=== PATIENT | female | born 1960 | race African-American/Black ===

== ENCOUNTER 2016-02-27 11:46 | Emergency (ER) | payer BC, OTHER ==
[~2016-02-27] VITALS: Ht 157.5 cm; Wt 74.8 kg
--- NOTE | ~2016-02-27 | EKG ---
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
[~2016-02-27 11:46] MED LIST: AMBIEN CR 6.26.25 MG PO; CITRATE OF MAG296 ML PO; CLARINEX5 MG PO; COLACE 100 MG100 MG PO; DESYREL; DILAUDID 2 MG TA2 MG PO; DILAUDID2 M1 PO; FLEXERIL PO; GLUCOPHAGE; HYDROCHLOROTH12.5 MG PO; HYDROCODONE-AP1 EAC6 PO; MIRALAX255 GM PO; NORCO 5-325 TA1 EACH PO; OXYCODONE HCL15 MG PO; PAROXETINE HCL30 MG PO; PEPCID40 MG PO; PERCOCET 5-3251 EACH PO; PERCODAN TABLE1 EACH PO; POTASSIUM; PREDNISONE 20 M20 MG PO; PRISTIQ100 MG PO; SYNTHROID; VALIUM2 MG PO; WELLBUTRIN SR150 MG PO
[2016-02-27 12:42] LABS: ABSOLUTE NEUTROPHILS 3.8 thou/uL (1.4-8.2); BASOPHILS 0.5 % (0.0-2.0); EOSINOPHILS 1.9 % (0.0-3.0); HEMATOCRIT 35.4 % (37.0-47.0); LYMPHOCYTES 26.8 % (24.0-44.0); MCH 30.4 pg (26.0-34.0); MCV 89.6 fL (80.0-100.0); PLATELET COUNT 307 thou/uL (150-400); POLYS 63.8 % (36.0-66.0); RBC 3.94 mil/uL (4.20-5.00); RDW 12.4 % (10.5-14.5); WBC 5.9 thou/uL (4.0-11.0)
[2016-02-27 12:45] LABS: ANION GAP 10 mmol/L (7-16); BUN 9 mg/dL (7-18); CALCIUM 8.7 mg/dL (8.5-10.1); CHLORIDE 103 mmol/L (98-107); CO2 28 mmol/L (21-32); CREATININE 0.9 mg/dL (0.6-1.3); GLUCOSE 100 mg/dL (70-99); POTASSIUM 4.2 mmol/L (3.5-5.1); SODIUM 141 mmol/L (136-145)
[2016-02-27 12:50] LABS: MANUAL DIFF NO
[2016-02-27 13:09] LABS: TROPONIN-I < 0.04 ng/mL (<0.04-0.07)
[2016-02-27 13:21] VITALS: BP 133/66
[2016-02-27] MEDS ORDERED: AUGMENTIN 875-1 EACH PO (13:25)
[2016-03-12] MEDS ORDERED: ROBAXIN 750 MG750 M1 PO (11:35)
[2016-03-12] MEDS ORDERED: NORCO 5-325 TA1 EACH PO (13:07)
[2016-03-12] MEDS ORDERED: LIORESAL 10 MG10 MG PO (13:07)
[2016-03-12] MEDS ORDERED: NAPROSYN500 M1 PO (13:07)
== END 2016-02-27 14:17 ==
LOC: ER 11:46
PROVIDERS: Emergency Medicine
DX: J20.9 Acute bronchitis, unspecified (principal); G43.909 Migraine, unspecified, not intractable, without status migrainosus; I10 Essential (primary) hypertension; E11.9 Type 2 diabetes mellitus without complications; Z90.89 Acquired absence of other organs; Z88.8 Allergy status to other drugs, medicaments and biological substances

== ENCOUNTER 2016-05-28 16:11 | Emergency (ER) | payer BC, OTHER ==
[~2016-05-28] VITALS: Ht 157.5 cm; Wt 83.9 kg
[~2016-05-28 16:11] MED LIST changes: +AUGMENTIN 875-1 EACH PO; +LIORESAL 10 MG10 MG PO; +NAPROSYN500 M1 PO; +ROBAXIN 750 MG750 M1 PO
[2016-05-28] MEDS ORDERED: TRAZODONE HCL100 MG PO (16:34)
[2016-05-28] MEDS ORDERED: PROPRANOLOL 1010 MG PO (16:35)
[2016-05-28] MEDS ORDERED: LEVOTHYROXINE0.05 MG PO (16:36)
[2016-05-28] MEDS ORDERED: LINZESS290 MCG PO (16:36)
[2016-05-28] MEDS ORDERED: ESTRACE2 M3 PO (16:37)
[2016-05-28] MEDS ORDERED: DOXEPIN 75 MG C75 M1 PO (16:37)
[2016-05-28] MEDS ORDERED: BUTALB-APAP-CA1 EACH PO (18:30)
[2016-05-28 18:47] VITALS: BP 118/63
== END 2016-05-28 18:30 | disposition home or self-care (01) ==
LOC: ER 16:11
DX: G43.909 Migraine, unspecified, not intractable, without status migrainosus (principal); Z90.89 Acquired absence of other organs; Z98.84 Bariatric surgery status; I10 Essential (primary) hypertension; E11.9 Type 2 diabetes mellitus without complications; Z88.8 Allergy status to other drugs, medicaments and biological substances

== ENCOUNTER 2016-06-27 08:06 | Emergency (ER) | payer BC, OTHER ==
[~2016-06-27] VITALS: Ht 157.5 cm; Wt 81.7 kg
--- NOTE | ~2016-06-27 | EKG ---
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
[~2016-06-27 08:06] MED LIST changes: +BUTALB-APAP-CA1 EACH PO; +DOXEPIN 75 MG C75 M1 PO; +ESTRACE2 M3 PO; +LEVOTHYROXINE0.05 MG PO; +LINZESS290 MCG PO; +PROPRANOLOL 1010 MG PO; +TRAZODONE HCL100 MG PO
[2016-06-27 08:27] LABS: ABSOLUTE NEUTROPHILS 5.7 thou/uL (1.4-8.2); BASOPHILS 0.8 % (0.0-2.0); EOSINOPHILS 1.4 % (0.0-3.0); HEMATOCRIT 39.1 % (37.0-47.0); HEMOGLOBIN 13.5 gm/dL (12.0-15.0); LYMPHOCYTES 22.9 % (24.0-44.0); MCHC 34.6 g/dL (28.0-37.0); MCV 92.5 fL (80.0-100.0); MONOCYTES 8.2 % (1.0-8.0); PLATELET COUNT 278 thou/uL (150-400); POLYS 66.7 % (36.0-66.0); RBC 4.22 mil/uL (4.20-5.00); RDW 12.3 % (10.5-14.5); WBC 8.6 thou/uL (4.0-11.0)
[2016-06-27 08:29] LABS: MANUAL DIFF NO
[2016-06-27 08:35] LABS: CALCIUM 9.7 mg/dL (8.5-10.1); POTASSIUM 3.7 mmol/L (3.5-5.1)
[2016-06-27] MEDS ORDERED: PROVENTIL HFA6.7 G1 INH (09:55)
[2016-06-27 10:17] VITALS: BP 95/56
== END 2016-06-27 10:17 | disposition home or self-care (01) ==
LOC: ER 08:06
PROVIDERS: Emergency Medicine
DX: J06.9 Acute upper respiratory infection, unspecified (principal); M79.1 Myalgia; G43.909 Migraine, unspecified, not intractable, without status migrainosus; I10 Essential (primary) hypertension; E11.9 Type 2 diabetes mellitus without complications; Z90.89 Acquired absence of other organs; Z98.84 Bariatric surgery status; Z88.8 Allergy status to other drugs, medicaments and biological substances

== ENCOUNTER 2016-07-29 10:11 | Emergency (ER) | payer BC, OTHER ==
[~2016-07-29] VITALS: Ht 157.5 cm; Wt 81.7 kg
[~2016-07-29 10:11] MED LIST changes: +PROVENTIL HFA6.7 G1 INH
[2016-07-29] MEDS ORDERED: MOBIC15 MG PO (11:09)
[2016-07-29] MEDS ORDERED: NORCO 5-325 TA1 EACH PO (11:15)
[2016-07-29 11:22] VITALS: BP 131/74
== END 2016-07-29 11:24 | disposition home or self-care (01) ==
LOC: ER 10:11
DX: M25.552 Pain in left hip (principal); I10 Essential (primary) hypertension; E11.9 Type 2 diabetes mellitus without complications; Z96.653 Presence of artificial knee joint, bilateral; Z96.642 Presence of left artificial hip joint; Z90.49 Acquired absence of other specified parts of digestive tract; Z98.84 Bariatric surgery status; Z88.8 Allergy status to other drugs, medicaments and biological substances; M79.89 Other specified soft tissue disorders

== ENCOUNTER 2016-08-17 18:31 | Emergency (ER) | payer BC, OTHER ==
[~2016-08-17] VITALS: Ht 157.5 cm; Wt 81.7 kg
[~2016-08-17 18:31] MED LIST changes: +MOBIC15 MG PO
[2016-08-17] MEDS ORDERED: FENTANYL 1100 MCG/HR TRANSDERM (22:26)
[2016-08-17] MEDS ORDERED: PREDNISONE50 MG PO (22:26)
[2016-08-17 22:43] VITALS: BP 135/68
== END 2016-08-17 22:43 | disposition home or self-care (01) ==
LOC: ER 18:31
DX: S76.012A Strain of muscle, fascia and tendon of left hip, initial encounter (principal); I10 Essential (primary) hypertension; E11.9 Type 2 diabetes mellitus without complications; G43.909 Migraine, unspecified, not intractable, without status migrainosus; Z98.890 Other specified postprocedural states; Z90.49 Acquired absence of other specified parts of digestive tract; Z96.653 Presence of artificial knee joint, bilateral; Z88.1 Allergy status to other antibiotic agents; W18.39XA Other fall on same level, initial encounter; Y93.89 Activity, other specified; Y92.89 Other specified places as the place of occurrence of the external cause; Y99.8 Other external cause status

== ENCOUNTER 2016-10-09 12:09 | Emergency (ER) | payer BC, OTHER ==
[~2016-10-09] VITALS: Ht 157.5 cm; Wt 81.7 kg
[~2016-10-09 12:09] MED LIST changes: +FENTANYL 1100 MCG/HR TRANSDERM; +PREDNISONE50 MG PO
[2016-10-09] MEDS ORDERED: HYDROCODONE-AP1 EAC6 PO (14:35)
[2016-10-09] MEDS ORDERED: SENOKOT-S1 TA1 PO (14:44)
[2016-10-09 15:14] VITALS: BP 145/87
== END 2016-10-09 15:14 | disposition home or self-care (01) ==
LOC: ER 12:09
DX: G89.29 Other chronic pain (principal); M54.5 Low back pain; I10 Essential (primary) hypertension; E11.9 Type 2 diabetes mellitus without complications; G43.909 Migraine, unspecified, not intractable, without status migrainosus; Z98.890 Other specified postprocedural states; Z96.642 Presence of left artificial hip joint; Z88.1 Allergy status to other antibiotic agents

== ENCOUNTER 2016-11-24 18:07 | Emergency (ER) | payer BC, OTHER ==
[~2016-11-24] VITALS: Ht 157.5 cm; Wt 83.9 kg
[~2016-11-24 18:07] MED LIST changes: +SENOKOT-S1 TA1 PO
[2016-11-24] MEDS ORDERED: REGLAN 10 MG TA10 MG PO (23:07)
[2016-11-24 23:30] VITALS: BP 109/64
== END 2016-11-24 23:32 | disposition home or self-care (01) ==
LOC: ER 18:07
DX: G43.009 Migraine without aura, not intractable, without status migrainosus (principal); I10 Essential (primary) hypertension; E11.9 Type 2 diabetes mellitus without complications; Z96.653 Presence of artificial knee joint, bilateral; Z88.1 Allergy status to other antibiotic agents

== ENCOUNTER 2017-08-29 09:56 | Emergency (ER) | payer BC, OTHER ==
[~2017-08-29] VITALS: Ht 157.5 cm; Wt 81.7 kg
--- NOTE | ~2017-08-29 | EKG ---
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 : 1960 Requested By: Lacey Jin Order Number: [id number] MD: Jean Sandoval Measurements Intervals [place] Rate: 63 P: 40 MO: 142 QRS: 19 QRSD: 91 T: 24 QT: 388 QTc: 398 Interpretive Statements Sinus rhythm Normal tracing Compared to ECG 01/01/2017 20:00:32 T-wave abnormality no longer present Electronically Signed On 08-30-2017 7:45:26 CDT by Jean Sandoval [email or web address] <ELECTRONICALLY SIGNED> By: Jean Sandoval MD, [facility] 08/30/17 0745 1007 [facility] Jean Sandoval MD, FACC /EPI
[~2017-08-29 09:56] MED LIST changes: +REGLAN 10 MG TA10 MG PO
[2017-08-29 10:35] LABS: ABSOLUTE NEUTROPHILS 3.2 thou/uL (1.4-8.2); BASOPHILS 0.6 % (0.0-2.0); EOSINOPHILS 1.6 % (0.0-3.0); HEMOGLOBIN 13.5 gm/dL (12.0-15.0); LYMPHOCYTES 27.6 % (24.0-44.0); MCH 32.2 pg (26.0-34.0); MCHC 34.6 g/dL (28.0-37.0); MONOCYTES 7.9 % (1.0-8.0); PLATELET COUNT 286 thou/uL (150-400); POLYS 62.3 % (36.0-66.0); RBC 4.19 mil/uL (4.20-5.00); RDW 12.1 % (10.5-14.5); WBC 5.2 thou/uL (4.0-11.0)
[2017-08-29 10:41] LABS: ANION GAP 6 mmol/L (7-16); BUN 11 mg/dL (7-18); CALCIUM 8.5 mg/dL (8.5-10.1); CHLORIDE 106 mmol/L (98-107); CO2 27 mmol/L (21-32); GLUCOSE 104 mg/dL (74-106); POTASSIUM 4.3 mmol/L (3.5-5.1); SODIUM 139 mmol/L (136-145)
[2017-08-29 10:50] LABS: TROPONIN-I <0.06 ng/mL (<0.06)
[2017-08-29] MEDS ORDERED: MOBIC15 MG PO (11:20)
[2017-08-29 11:39] VITALS: BP 129/75
== END 2017-08-29 11:41 | disposition home or self-care (01) ==
LOC: ER 09:56
PROVIDERS: Physician Assistant
DX: R07.89 Other chest pain (principal); R06.02 Shortness of breath; R11.0 Nausea; G43.909 Migraine, unspecified, not intractable, without status migrainosus; I10 Essential (primary) hypertension; E11.9 Type 2 diabetes mellitus without complications; Z90.49 Acquired absence of other specified parts of digestive tract; Z98.84 Bariatric surgery status; Z96.642 Presence of left artificial hip joint; Z88.8 Allergy status to other drugs, medicaments and biological substances

== ENCOUNTER 2017-11-04 16:18 | Emergency (ER) | payer BC, OTHER ==
[~2017-11-04] VITALS: Ht 157.5 cm; Wt 81.7 kg
[2017-11-04 16:26] VITALS: BP 148/88
[2017-11-04] MEDS ORDERED: HYDROCODONE-AP1 EAC6 PO (17:29)
== END 2017-11-04 18:01 | disposition home or self-care (01) ==
LOC: ER 16:18
DX: S92.524A Nondisplaced fracture of middle phalanx of right lesser toe(s), initial encounter for closed fracture (principal); G43.909 Migraine, unspecified, not intractable, without status migrainosus; I10 Essential (primary) hypertension; E11.9 Type 2 diabetes mellitus without complications; Z96.653 Presence of artificial knee joint, bilateral; Z96.642 Presence of left artificial hip joint; Z90.49 Acquired absence of other specified parts of digestive tract; Z88.8 Allergy status to other drugs, medicaments and biological substances; W22.8XXA Striking against or struck by other objects, initial encounter; Y92.89 Other specified places as the place of occurrence of the external cause; Y93.89 Activity, other specified; Y99.8 Other external cause status

== ENCOUNTER 2018-01-07 16:26 | Emergency (ER) | payer BC, OTHER ==
[~2018-01-07] VITALS: Ht 165.1 cm; Wt 90.7 kg
[2018-01-07 16:27] VITALS: BP 144/74
[2018-01-07] MEDS ORDERED: PERCOCET 7.5-31 EACH PO (18:12)
== END 2018-01-07 18:39 | disposition home or self-care (01) ==
LOC: ER 16:26
DX: S93.491A Sprain of other ligament of right ankle, initial encounter (principal); S83.8X1A Sprain of other specified parts of right knee, initial encounter; S33.5XXA Sprain of ligaments of lumbar spine, initial encounter; Z88.8 Allergy status to other drugs, medicaments and biological substances; G43.909 Migraine, unspecified, not intractable, without status migrainosus; I10 Essential (primary) hypertension; E11.9 Type 2 diabetes mellitus without complications; Z96.653 Presence of artificial knee joint, bilateral; Z96.642 Presence of left artificial hip joint; Z90.49 Acquired absence of other specified parts of digestive tract; W18.39XA Other fall on same level, initial encounter; Y92.89 Other specified places as the place of occurrence of the external cause; Y93.89 Activity, other specified; Y99.8 Other external cause status

== ENCOUNTER 2018-04-04 13:49 | Emergency (ER) | payer BC, OTHER ==
[~2018-04-04] VITALS: Ht 157.5 cm; Wt 81.7 kg
[~2018-04-04 13:49] MED LIST changes: +PERCOCET 7.5-31 EACH PO
[2018-04-04 14:40] LABS: ABSOLUTE NEUTROPHILS 1.9 thou/uL (1.4-8.2); BASOPHILS 0.9 % (0.0-2.0); EOSINOPHILS 0.9 % (0.0-3.0); HEMATOCRIT 37.7 % (37.0-47.0); HEMOGLOBIN 13.3 gm/dL (12.0-15.0); LYMPHOCYTES 44.9 % (24.0-44.0); MCH 32.4 pg (26.0-34.0); MCHC 35.4 g/dL (28.0-37.0); MCV 91.5 fL (80.0-100.0); MONOCYTES 8.2 % (1.0-8.0); PLATELET COUNT 292 thou/uL (150-400); POLYS 45.1 % (36.0-66.0); RBC 4.12 mil/uL (4.20-5.00); RDW 11.6 % (10.5-14.5); WBC 4.3 thou/uL (4.0-11.0)
[2018-04-04 14:49] LABS: CALCIUM 9.7 mg/dL (8.5-10.1); CREATININE 0.9 mg/dL (0.6-1.0)
[2018-04-04 14:55] LABS: ALBUMIN 3.8 g/dL (3.4-5.0); TOTAL BILIRUBIN 0.5 mg/dL (<0.1-1.0); TOTAL PROTEIN 7.6 g/dL (6.4-8.2)
[2018-04-04] MEDS ORDERED: TESSALON PERLE100 MG PO (15:28)
[2018-04-04] MEDS ORDERED: PREDNISONE 20 M20 MG PO (15:53)
[2018-04-04 16:22] VITALS: BP 114/76
== END 2018-04-04 16:25 | disposition home or self-care (01) ==
LOC: ER 13:49
PROVIDERS: Nurse Practitioner
DX: J06.9 Acute upper respiratory infection, unspecified (principal); G43.909 Migraine, unspecified, not intractable, without status migrainosus; I10 Essential (primary) hypertension; E11.9 Type 2 diabetes mellitus without complications; Z96.653 Presence of artificial knee joint, bilateral; Z96.642 Presence of left artificial hip joint; Z90.49 Acquired absence of other specified parts of digestive tract; Z98.84 Bariatric surgery status; Z88.8 Allergy status to other drugs, medicaments and biological substances; R42 Dizziness and giddiness

== ENCOUNTER 2018-07-19 12:01 | Emergency (ER) | payer BC, OTHER ==
[~2018-07-19] VITALS: Ht 157.5 cm; Wt 86.2 kg
[~2018-07-19 12:01] MED LIST changes: +TESSALON PERLE100 MG PO
[2018-07-19 12:33] LABS: URINE BILIRUBIN NEGATIVE (Negative); URINE BLOOD NEGATIVE (Negative); URINE CLARITY CLEAR; URINE COLOR YELLOW; URINE GLUCOSE-RANDOM* NEGATIVE (Negative); URINE KETONES NEGATIVE (Negative); URINE LEUKOCYTES-REFLEX NEGATIVE (Negative); URINE NITRITE-REFLEX NEGATIVE (Negative); URINE PROTEIN (DIPSTICK) TRACE (Negative)
[2018-07-19] MEDS ORDERED: MOBIC7.5 MG PO (15:31)
[2018-07-19] MEDS ORDERED: LIDOCAINE1 EACH TOP (15:31)
[2018-07-19] MEDS ORDERED: NORCO 5-325 TA1 EAC1 PO (15:31)
[2018-07-19 15:40] VITALS: BP 138/69
== END 2018-07-19 15:40 | disposition home or self-care (01) ==
LOC: ER 12:01
PROVIDERS: Physician Assistant
DX: M54.5 Low back pain (principal); R19.7 Diarrhea, unspecified; G43.909 Migraine, unspecified, not intractable, without status migrainosus; I10 Essential (primary) hypertension; E11.9 Type 2 diabetes mellitus without complications; Z96.653 Presence of artificial knee joint, bilateral; Z96.642 Presence of left artificial hip joint; Z88.8 Allergy status to other drugs, medicaments and biological substances; Z79.899 Other long term (current) drug therapy

== ENCOUNTER 2018-08-26 12:35 | Emergency (ER) | payer BC, OTHER ==
[~2018-08-26] VITALS: Ht 157.5 cm; Wt 86.2 kg
[~2018-08-26 12:35] MED LIST changes: +LIDOCAINE1 EACH TOP; +MOBIC7.5 MG PO; +NORCO 5-325 TA1 EAC1 PO
[2018-08-26] MEDS ORDERED: MAGIC MOUTHWASH SW&SWALLOW (13:42)
[2018-08-26 14:02] VITALS: BP 102/70
== END 2018-08-26 14:46 | disposition home or self-care (01) ==
LOC: ER 12:35
DX: K12.1 Other forms of stomatitis (principal); G43.909 Migraine, unspecified, not intractable, without status migrainosus; I10 Essential (primary) hypertension; E11.9 Type 2 diabetes mellitus without complications; Z96.653 Presence of artificial knee joint, bilateral; Z96.642 Presence of left artificial hip joint; Z90.49 Acquired absence of other specified parts of digestive tract; Z98.84 Bariatric surgery status; Z88.8 Allergy status to other drugs, medicaments and biological substances

== ENCOUNTER 2018-08-27 09:49 | Emergency (ER) | payer BC, OTHER ==
[~2018-08-27] VITALS: Ht 157.5 cm; Wt 81.7 kg
[~2018-08-27 09:49] MED LIST changes: +MAGIC MOUTHWASH SW&SWALLOW
[2018-08-27 11:37] VITALS: BP 109/75
--- NOTE | 2018-08-28 18:19 | EKG ---
[address] [address] [address] [facility] [place] [address] ELECTROCARDIOGRAM REPORT Name: ROSARIO PHAN Room #: DEP [facility]#: [id number] ������������������ Admission: 08/27/18 ������������������ Attend Phys: Discharge: 08/27/18 ������������������ Date of : 60 Report #: [id number] ����������������������������������������������������������������� [id number] THIS REPORT FOR: //name// [facility] ED Test Date: 2018-08-27 Test Time: 09:54:31 Pat Name: ROSARIO PHAN Department: Room: Gender: F Monogram [employer] Letter Paster: [facility] : 1960 Requested By: Ema Beaver Order Number: [id number] MD: Jean Sandoval Measurements Intervals [place] Rate: 96 P: 26 [place]: 134 QRS: -3 QRSD: 85 T: 17 QT: 329 QTc: 416 Interpretive Statements Sinus rhythm Abnormal R-wave progression, early transition Borderline T wave abnormalities Compared to ECG 08/29/2017 10:07:34 Nonspecific change in the T wave abnormality Electronically Signed On 08-28-2018 18:18:54 CDT by Jean Sandoval [email or web address] ��������������������������������������������� <ELECTRONICALLY SIGNED> ���������������������������������������� By: Jean Sandoval MD, [facility] ��������������������������������������������� 08/28/18 1818 0954 Jean Sandoval MD, [facility] /EPI
== END 2018-08-27 11:39 | disposition home or self-care (01) ==
LOC: ER 09:49
DX: M94.0 Chondrocostal junction syndrome [Tietze] (principal); K12.1 Other forms of stomatitis; G43.909 Migraine, unspecified, not intractable, without status migrainosus; I10 Essential (primary) hypertension; E11.9 Type 2 diabetes mellitus without complications; Z96.653 Presence of artificial knee joint, bilateral; Z88.8 Allergy status to other drugs, medicaments and biological substances; Z90.49 Acquired absence of other specified parts of digestive tract; Z96.642 Presence of left artificial hip joint

== ENCOUNTER 2018-12-01 16:30 | Emergency (ER) | payer BC, OTHER ==
[~2018-12-01] VITALS: Ht 157.5 cm; Wt 81.7 kg
[2018-12-01] MEDS ORDERED: CYCLOBENZAPRINE5 MG PO (17:28)
[2018-12-01] MEDS ORDERED: NORCO 7.5-3251 EACH PO (17:28)
[2018-12-01] MEDS ORDERED: MEDROLDOSEPACK PO (17:28)
[2018-12-01 18:34] VITALS: BP 148/84
== END 2018-12-01 18:48 | disposition home or self-care (01) ==
LOC: ER 16:30
DX: G89.29 Other chronic pain (principal); M54.5 Low back pain; I10 Essential (primary) hypertension; E11.9 Type 2 diabetes mellitus without complications; G43.909 Migraine, unspecified, not intractable, without status migrainosus; Z98.84 Bariatric surgery status; Z96.653 Presence of artificial knee joint, bilateral; Z96.642 Presence of left artificial hip joint; Z98.890 Other specified postprocedural states; Z88.1 Allergy status to other antibiotic agents

== ENCOUNTER 2018-12-04 13:33 | Emergency (ER) | payer BC, OTHER ==
[~2018-12-04] VITALS: Ht 157.5 cm; Wt 81.7 kg
[~2018-12-04 13:33] MED LIST changes: +CYCLOBENZAPRINE5 MG PO; +MEDROLDOSEPACK PO; +NORCO 7.5-3251 EACH PO
[2018-12-04] MEDS ORDERED: IBUPROFEN 800800 M1 PO (15:58)
[2018-12-04] MEDS ORDERED: NORFLEX100 MG PO (15:58)
[2018-12-04 16:15] VITALS: BP 129/82
== END 2018-12-04 16:15 | disposition home or self-care (01) ==
LOC: ER 13:33
DX: S16.1XXA Strain of muscle, fascia and tendon at neck level, initial encounter (principal); S39.012A Strain of muscle, fascia and tendon of lower back, initial encounter; S76.012A Strain of muscle, fascia and tendon of left hip, initial encounter; G43.909 Migraine, unspecified, not intractable, without status migrainosus; I10 Essential (primary) hypertension; E11.9 Type 2 diabetes mellitus without complications; Z98.84 Bariatric surgery status; Z90.49 Acquired absence of other specified parts of digestive tract; Z96.653 Presence of artificial knee joint, bilateral; Z96.642 Presence of left artificial hip joint; Z88.8 Allergy status to other drugs, medicaments and biological substances; V89.2XXA Person injured in unspecified motor-vehicle accident, traffic, initial encounter; Y92.89 Other specified places as the place of occurrence of the external cause; Y93.89 Activity, other specified; Y99.8 Other external cause status

== ENCOUNTER 2019-11-18 09:43 | Emergency (ER) | payer BC, OTHER ==
[~2019-11-18] VITALS: Ht 157.5 cm; Wt 81.7 kg
[~2019-11-18 09:43] MED LIST changes: +IBUPROFEN 800800 M1 PO; +NAPRELAN375 MG PO; +NORFLEX100 MG PO; +PEPCID20 MG PO
[2019-11-18 11:59] LABS: ABSOLUTE NEUTROPHILS 2.7 thou/uL (1.4-8.2); BASOPHILS 0.9 % (0.0-2.0); EOSINOPHILS 1.7 % (0.0-3.0); HEMATOCRIT 36.1 % (37.0-47.0); HEMOGLOBIN 12.3 gm/dL (12.0-15.0); LYMPHOCYTES 28.6 % (24.0-44.0); MCH 31.4 pg (26.0-34.0); MCHC 33.9 g/dL (28.0-37.0); MCV 92.5 fL (80.0-100.0); MONOCYTES 8.5 % (1.0-8.0); PLATELET COUNT 330 thou/uL (150-400); POLYS 60.3 % (36.0-66.0); RBC 3.91 mil/uL (4.20-5.00); RDW 12.6 % (10.5-14.5); WBC 4.5 thou/uL (4.0-11.0)
[2019-11-18 12:11] LABS: ANION GAP 10 mmol/L (7-16); BUN 12 mg/dL (7-18); CALCIUM 9.2 mg/dL (8.5-10.1); CHLORIDE 106 mmol/L (98-107); CO2 25 mmol/L (21-32); CREATININE 0.9 mg/dL (0.6-1.0); GLUCOSE 116 mg/dL (74-106); POTASSIUM 4.2 mmol/L (3.5-5.1); SODIUM 141 mmol/L (136-145)
[2019-11-18 12:22] LABS: ALBUMIN 3.7 g/dL (3.4-5.0); DIRECT BILIRUBIN < 0.1 mg/dL (<0.1-0.2); LIPASE 51 U/L (73-393); SGOT 17 U/L (15-37); SGPT 20 U/L (30-65); TOTAL BILIRUBIN 0.3 mg/dL (0.2-1.0); TOTAL PROTEIN 7.5 g/dL (6.4-8.2)
[2019-11-18 12:30] LABS: URINE BILIRUBIN NEGATIVE (Negative); URINE BLOOD NEGATIVE (Negative); URINE CLARITY CLEAR; URINE COLOR YELLOW; URINE GLUCOSE-RANDOM* NEGATIVE (Negative); URINE KETONES NEGATIVE (Negative); URINE LEUKOCYTES-REFLEX NEGATIVE (Negative); URINE NITRITE-REFLEX NEGATIVE (Negative); URINE PROTEIN (DIPSTICK) NEGATIVE (Negative); URINE SPECIFIC GRAVITY >= 1.030 (1.005-1.035)
[2019-11-18 16:21] VITALS: BP 109/72
== END 2019-11-18 16:21 | disposition home or self-care (01) ==
LOC: ER 09:43
PROVIDERS: Nurse Practitioner
DX: K56.7 Ileus, unspecified (principal); I10 Essential (primary) hypertension; E11.9 Type 2 diabetes mellitus without complications; G43.909 Migraine, unspecified, not intractable, without status migrainosus; Z79.899 Other long term (current) drug therapy; Z88.8 Allergy status to other drugs, medicaments and biological substances

== ENCOUNTER 2019-11-28 18:08 | Emergency (ER) | payer BC, OTHER ==
[~2019-11-28] VITALS: Ht 157.5 cm; Wt 81.7 kg
[2019-11-28 22:05] VITALS: BP 114/91
== END 2019-11-28 22:10 | disposition home or self-care (01) ==
LOC: ER 18:08
DX: R07.81 Pleurodynia (principal); I10 Essential (primary) hypertension; E11.9 Type 2 diabetes mellitus without complications; G43.909 Migraine, unspecified, not intractable, without status migrainosus; Z79.899 Other long term (current) drug therapy; Z79.1 Long term (current) use of non-steroidal anti-inflammatories (NSAID); Z88.8 Allergy status to other drugs, medicaments and biological substances

== ENCOUNTER 2020-07-16 14:31 | Emergency (ER) | payer BC, OTHER ==
[~2020-07-16] VITALS: Ht 157.5 cm; Wt 73.9 kg
[2020-07-16] MEDS ORDERED: NORCO 10-325 T1 EACH PO (16:48)
[2020-07-16 17:33] VITALS: BP 134/82
== END 2020-07-16 17:35 | disposition home or self-care (01) ==
LOC: ER 14:31
DX: S63.502A Unspecified sprain of left wrist, initial encounter (principal); S30.0XXA Contusion of lower back and pelvis, initial encounter; S70.02XA Contusion of left hip, initial encounter; G43.909 Migraine, unspecified, not intractable, without status migrainosus; I10 Essential (primary) hypertension; E11.9 Type 2 diabetes mellitus without complications; Z98.890 Other specified postprocedural states; Z88.8 Allergy status to other drugs, medicaments and biological substances; W10.8XXA Fall (on) (from) other stairs and steps, initial encounter; Y93.01 Activity, walking, marching and hiking; Y92.89 Other specified places as the place of occurrence of the external cause; Y99.8 Other external cause status

== ENCOUNTER 2021-04-03 07:29 | Emergency (ER) | payer BC, OTHER ==
[~2021-04-03] VITALS: Ht 157.5 cm; Wt 59.0 kg
[~2021-04-03 07:29] MED LIST changes: +NORCO 10-325 T1 EACH PO
[2021-04-03] MEDS ORDERED: FLEXERIL PO (08:12)
[2021-04-03] MEDS ORDERED: NAPROSYN500 MG PO ×3 (08:12→08:36)
[2021-04-03] MEDS ORDERED: NORCO5 PO ×3 (08:12→08:36)
[2021-04-03 08:41] VITALS: BP 103/64
== END 2021-04-03 08:42 | disposition home or self-care (01) ==
LOC: ER 07:29
DX: M25.511 Pain in right shoulder (principal); G43.909 Migraine, unspecified, not intractable, without status migrainosus; I10 Essential (primary) hypertension; E11.9 Type 2 diabetes mellitus without complications; Z98.890 Other specified postprocedural states; W10.8XXA Fall (on) (from) other stairs and steps, initial encounter; Y93.89 Activity, other specified; Y92.89 Other specified places as the place of occurrence of the external cause; Y99.8 Other external cause status